=== PATIENT | male | born 1945 | race African-American/Black ===

== ENCOUNTER 2017-04-14 16:48 | Emergency (ER) | payer MEDICARE, MEDICAID ==
[~2017-04-14] VITALS: Ht 182.9 cm; Wt 96.0 kg
[2017-04-14] MEDS ORDERED: VISCOUS LIDOCAINE 2% 15 ML UDC PO STA (17:45)
[2017-04-14] MEDS ORDERED: MAGNESIUM/ALUMINUM HYDROXIDE/SIMETHICONE 30ML UDC PO STA (17:45)
[2017-04-14] MEDS ORDERED: FAMOTIDINE 20MG TABLET PO ONE (17:45)
[2017-04-14 20:15] VITALS: BP 132/75
== END 2017-04-14 20:30 | disposition home or self-care (01) ==
LOC: ER 16:59
DX: R07.89 Other chest pain (principal); R03.0 Elevated blood-pressure reading, without diagnosis of hypertension
CPT/HCPCS: 93005; 99283

== ENCOUNTER 2018-09-20 11:33 | Inpatient (IN) | payer MEDICARE, MEDICAID ==
[~2018-09-20] VITALS: Ht 185.4 cm; Wt 70.8 kg
[2018-09-20 12:57] LABS: BASOPHILS % 1.1 % (0.0-2.0); EOSINOPHILS % 1.4 % (0.0-5.0); HEMATOCRIT. 40.2 % (42.0-52.0); LYMPHOCYTES % 36.7 % (20.0-50.0); MEAN CORPUSCULAR HEMOGLOBIN 33.8 pg (28.0-32.0); MEAN CORPUSCULAR VOLUME 104.6 fL (80.0-94.0); MEAN PLATELET VOLUME 10.1 fl (7.4-10.4); MONOCYTES % 2.2 % (2.0-8.0); NEUTROPHILS % 58.6 % (40.0-76.0); PLATELET 142 x1000/uL (130-400); RED BLOOD CELL COUNT 3.85 mill/uL (4.7-6.1)
[2018-09-20 13:08] LABS: INR 1.2; PARTIAL THROMBOPLASTIN TIME 27.1 sec (23.4-31.0); PROTHROMBIN TIME 11.7 sec (9.1-11.1)
[2018-09-20 13:09] LABS: CHLORIDE 112 mEq/L (98-107)
[2018-09-20] MEDS ORDERED: ASPIRIN 325MG EC TABLET PO ONE (13:15)
[2018-09-20] MEDS ORDERED: POTASSIUM CHLORIDE 20MEQ TABLET SR PO ONE (13:30)
[2018-09-20] MEDS ORDERED: SODIUM CHLORIDE 0.9% 1000ML BAG (SEPSIS BOLUS) IV ONE (13:30)
[2018-09-20] MEDS ORDERED: LEVOFLOXACIN 750MG PREMIX 150 ML IV ONE (13:30)
[2018-09-20] MEDS ORDERED: ONDANSETRON HCL 4MG/2ML INJ IV PRN (14:30)
[2018-09-20] MEDS ORDERED: MORPHINE SULFATE 4 MG/ML CPJ (NOT FOR IM USE) IV PRN (14:30)
[2018-09-20] MEDS ORDERED: ACETAMINOPHEN 325MG TABLET PO PRN (14:30)
[2018-09-20] MEDS ORDERED: ENOXAPARIN 80MG/0.8ML SYR SUBCUT ONE (16:00)
[2018-09-20] MEDS ORDERED: IOHEXOL-350 100 ML BOTTLE ONE (17:08)
[2018-09-20 17:44] LABS: KETONES URINE NEGATIVE (NEGATIVE); LEUKOCYTE ESTERASE URINE NEGATIVE (NEGATIVE); NITRITE URINE NEGATIVE (NEGATIVE); OCCULT BLOOD URINE 3+ (NEGATIVE); PROTEIN URINE NEGATIVE (NEGATIVE); SPECIFIC GRAVITY URINE 1.022 (1.005-1.030)
[2018-09-20 17:45] LABS: CLARITY URINE HAZY (CLEAR); COLOR URINE AMBER (YELLOW)
[2018-09-20 17:55] LABS: *AMPHETAMINES SCREEN URINE NEGATIVE (NEGATIVE); *BARBITURATES SCREEN URINE NEGATIVE (NEGATIVE)
[2018-09-20 17:56] LABS: *BENZODIAZEPINES SCREEN URINE NEGATIVE (NEGATIVE); *COCAINE SCREEN URINE NEGATIVE (NEGATIVE); CANNABINOID URINE SCREEN NEGATIVE (NEGATIVE); METHADONE URINE SCREEN NEGATIVE (NEGATIVE); OPIATES URINE SCREEN NEGATIVE (NEGATIVE); PHENCYCLIDINE URINE SCREEN NEGATIVE (NEGATIVE)
[2018-09-20 20:58] LABS: AMMONIA 26 uMol/L (<32)
[2018-09-20 23:00] VITALS: BP 115/63
[2018-09-21] VITALS (11 sets, daily range): BP systolic 109–129; BP diastolic 60–80
[2018-09-21 06:29] LABS: BASOPHILS % 0.9 % (0.0-2.0); EOSINOPHILS % 2.8 % (0.0-5.0); HEMATOCRIT. 39.7 % (42.0-52.0); LYMPHOCYTES % 43.5 % (20.0-50.0); MEAN CORPUSCULAR HEMOGLOBIN 34.6 pg (28.0-32.0); MEAN CORPUSCULAR VOLUME 105.4 fL (80.0-94.0); MEAN PLATELET VOLUME 10.4 fl (7.4-10.4); MONOCYTES % 7.1 % (2.0-8.0); NEUTROPHILS % 45.7 % (40.0-76.0); PLATELET 128 x1000/uL (130-400); RED BLOOD CELL COUNT 3.77 mill/uL (4.7-6.1); RED CELL DISTRIBUTION WIDTH 14.2 % (11.6-14.6)
[2018-09-21 06:36] LABS: CHLORIDE 117 mEq/L (98-107)
[2018-09-21] MEDS ORDERED: PNEUMOCOCCAL 23-VAL P-SAC VAC 0.5 ML IM ONE (09:00)
[2018-09-21] MEDS ORDERED: FUROSEMIDE 40MG/4ML VIAL IV SCH (09:00)
[2018-09-21] MEDS ORDERED: INFLUENZA VIRUS VACCINE(AFLURIA) 0.5ML SYR IM ONE (09:00)
[2018-09-21] MEDS: ENOXAPARIN 80MG/0.8ML SYR SUBCUT SCH ×2 (09:00→21:37)
[2018-09-21 11:32] LABS: T4 FREE 1.47 ng/dL (0.76-1.46)
[2018-09-21 11:57] LABS: FOLIC ACID (FOLATE) SERUM 11.1 ng/mL (>5.38)
[2018-09-21] MEDS ORDERED: SODIUM BICARBONATE 4% (2.4MEQ) 5ML VIAL IV ONE (13:04)
[2018-09-21] MEDS ORDERED: LIDOCAINE HCL 1% 20ML VIAL (Pyxis) INJ ONE (13:04)
[2018-09-21] MEDS ORDERED: IOHEXOL-300 100 ML BOTTLE ONE (13:05)
[2018-09-21] MEDS ORDERED: LEVOFLOXACIN 500MG PREMIX 100 ML IV SCH (14:00)
[2018-09-21] MEDS: DEXTROSE 5% WATER 1,000 ML IV SCH (15:06)
[2018-09-21 18:19] LABS: CREATINE KINASE 59 IU/L (39-308); CREATINE KINASE MB FRACTION 1.3 ng/mL (0.5-3.6)
[2018-09-21] MEDS: ATORVASTATIN CALCIUM 10MG TABLET PO SCH (21:38)
[2018-09-22] VITALS (7 sets, daily range): BP systolic 101–118; BP diastolic 49–80
[2018-09-22] MEDS: IPRATROPIUM/ALBUTEROL 0.5-3(2.5)MG/3ML NEB INH SCH ×4 (01:19→20:20)
[2018-09-22 02:32] LABS: CREATINE KINASE 81 IU/L (39-308); CREATINE KINASE MB FRACTION 1.5 ng/mL (0.5-3.6)
[2018-09-22 07:23] LABS: BASOPHILS % 1.1 % (0.0-2.0); EOSINOPHILS % 2.6 % (0.0-5.0); HEMATOCRIT. 34.6 % (42.0-52.0); HEMOGLOBIN. 11.5 g/dL (14.0-18.0); LYMPHOCYTES % 44.4 % (20.0-50.0); MEAN CORPUSCULAR HEMOGLOBIN 35.2 pg (28.0-32.0); MEAN CORPUSCULAR VOLUME 105.7 fL (80.0-94.0); MEAN PLATELET VOLUME 10.5 fl (7.4-10.4); MONOCYTES % 7.9 % (2.0-8.0); PLATELET 126 x1000/uL (130-400); RED BLOOD CELL COUNT 3.28 mill/uL (4.7-6.1); RED CELL DISTRIBUTION WIDTH 13.7 % (11.6-14.6)
[2018-09-22 08:17] LABS: CHLORIDE 111 mEq/L (98-107)
[2018-09-22 08:31] LABS: CREATINE KINASE 82 IU/L (39-308); CREATINE KINASE MB FRACTION 1.7 ng/mL (0.5-3.6)
[2018-09-22] MEDS ORDERED: POTASSIUM CHLORIDE 20MEQ/PACKET PO NR (09:15)
[2018-09-22] MEDS: DEXTROSE 5% WATER 1,000 ML IV SCH (10:24)
[2018-09-22] MEDS ORDERED: LEVOFLOXACIN 500MG PREMIX 100 ML IV SCH (15:30)
[2018-09-22 16:04] LABS: TOTAL IRON BINDING CAPACITY 188 ug/dL (250-450)
[2018-09-22] MEDS: PANTOPRAZOLE SODIUM 40 MG/VIAL IV SCH (16:44)
[2018-09-22] MEDS: DOCUSATE SODIUM 100MG CAPSULE PO PRN (16:44)
[2018-09-22] MEDS: ATORVASTATIN CALCIUM 10MG TABLET PO SCH (21:37)
[2018-09-23] MEDS: DEXTROSE 5% WATER 1,000 ML IV SCH ×2 (01:59→20:57)
[2018-09-23] MEDS: IPRATROPIUM/ALBUTEROL 0.5-3(2.5)MG/3ML NEB INH SCH ×4 (02:03→20:14)
[2018-09-23 04:00] VITALS: BP 129/80
[2018-09-23 07:42] VITALS: BP 103/56
[2018-09-23 09:10] LABS: HEMOGLOBIN. 10.8 g/dL (14.0-18.0); MEAN CORPUSCULAR HEMOGLOBIN 33.9 pg (28.0-32.0); MEAN PLATELET VOLUME 9.7 fl (7.4-10.4); PLATELET 122 x1000/uL (130-400); RED BLOOD CELL COUNT 3.18 mill/uL (4.7-6.1); RED CELL DISTRIBUTION WIDTH 13.7 % (11.6-14.6)
[2018-09-23 09:29] LABS: CHLORIDE 106 mEq/L (98-107)
[2018-09-23 09:41] LABS: PHOSPHORUS 2.6 mg/dL (2.5-4.9)
[2018-09-23] MEDS: PANTOPRAZOLE SODIUM 40 MG/VIAL IV SCH ×2 (10:31→17:17)
[2018-09-23] MEDS: LEVOFLOXACIN 500MG TABLET PO SCH (10:33)
[2018-09-23 12:00] VITALS: BP 104/56
[2018-09-23 12:27] LABS: PLATELET ESTIMATE SLIGHTLY DECREASED
[2018-09-23 16:00] VITALS: BP 121/59
[2018-09-23 20:00] VITALS: BP 104/60
[2018-09-23] MEDS: ATORVASTATIN CALCIUM 10MG TABLET PO SCH (20:57)
[2018-09-24] VITALS: BP 109/55
[2018-09-24] MEDS: IPRATROPIUM/ALBUTEROL 0.5-3(2.5)MG/3ML NEB INH SCH ×4 (02:05→21:02)
[2018-09-24 04:00] VITALS: BP 116/65
[2018-09-24 08:28] VITALS: BP 126/60
[2018-09-24] MEDS: PANTOPRAZOLE SODIUM 40 MG/VIAL IV SCH ×2 (09:11→16:22)
[2018-09-24] MEDS: DOCUSATE SODIUM 100MG CAPSULE PO PRN (09:11)
[2018-09-24] MEDS: LEVOFLOXACIN 500MG TABLET PO SCH (09:11)
[2018-09-24 12:00] VITALS: BP 118/62
[2018-09-24 16:00] VITALS: BP 105/62
[2018-09-24 17:15] LABS: BASOPHILS % 1.1 % (0.0-2.0); EOSINOPHILS % 3.2 % (0.0-5.0); HEMATOCRIT. 35.3 % (42.0-52.0); HEMOGLOBIN. 11.4 g/dL (14.0-18.0); LYMPHOCYTES % 32.6 % (20.0-50.0); MEAN CORPUSCULAR HEMOGLOBIN 34.6 pg (28.0-32.0); MEAN CORPUSCULAR VOLUME 107.2 fL (80.0-94.0); MEAN PLATELET VOLUME 10.6 fl (7.4-10.4); MONOCYTES % 11.6 % (2.0-8.0); NEUTROPHILS % 51.5 % (40.0-76.0); PLATELET 89 x1000/uL (130-400); RED CELL DISTRIBUTION WIDTH 14.2 % (11.6-14.6)
[2018-09-24 17:23] LABS: CHLORIDE 106 mEq/L (98-107)
[2018-09-24 20:00] VITALS: BP 135/68
[2018-09-24] MEDS: ATORVASTATIN CALCIUM 10MG TABLET PO SCH (20:47)
[2018-09-25] VITALS: BP 111/96
[2018-09-25] MEDS: IPRATROPIUM/ALBUTEROL 0.5-3(2.5)MG/3ML NEB INH SCH ×2 (01:01→09:28)
[2018-09-25 04:00] VITALS: BP 119/60
[2018-09-25 07:13] LABS: BASOPHILS % 1.2 % (0.0-2.0); EOSINOPHILS % 2.5 % (0.0-5.0); HEMATOCRIT. 31.9 % (42.0-52.0); HEMOGLOBIN. 10.7 g/dL (14.0-18.0); LYMPHOCYTES % 47.4 % (20.0-50.0); MEAN CORPUSCULAR HEMOGLOBIN 35.2 pg (28.0-32.0); MEAN CORPUSCULAR VOLUME 104.7 fL (80.0-94.0); MEAN PLATELET VOLUME 10.1 fl (7.4-10.4); MONOCYTES % 9.7 % (2.0-8.0); NEUTROPHILS % 39.2 % (40.0-76.0); PLATELET 122 x1000/uL (130-400); RED BLOOD CELL COUNT 3.04 mill/uL (4.7-6.1); RED CELL DISTRIBUTION WIDTH 13.5 % (11.6-14.6)
[2018-09-25 07:39] LABS: CHLORIDE 108 mEq/L (98-107)
[2018-09-25 08:00] VITALS: BP 121/69
[2018-09-25] MEDS ORDERED: POTASSIUM CHLORIDE 20MEQ/PACKET PO SCH (08:15)
[2018-09-25] MEDS: PANTOPRAZOLE SODIUM 40 MG/VIAL IV SCH (10:28)
[2018-09-25] MEDS: LEVOFLOXACIN 500MG TABLET PO SCH (10:28)
[2018-09-25 11:22] VITALS: BP 121/69
[2018-09-25 12:00] VITALS: BP 120/67
== END 2018-09-25 14:05 | disposition home health service (06) | DRG 139 ==
LOC: ER 13:09 → 8WST 14:14 → EDBEDREQ 14:22 → ENRESERV 19:16
PROVIDERS: ADMIT Internal Medicine Nephrology; ATTEND Internal Medicine Nephrology
PROC: 06H03DZ Insertion of Intraluminal Device into Inferior Vena Cava, Percutaneous Approach (ICD-10-PCS; principal; 2018-09-21)
DX: J18.9 Pneumonia, unspecified organism (principal); I82.412 Acute embolism and thrombosis of left femoral vein; D69.6 Thrombocytopenia, unspecified; E86.0 Dehydration; D64.9 Anemia, unspecified; I10 Essential (primary) hypertension; B19.20 Unspecified viral hepatitis C without hepatic coma; N39.0 Urinary tract infection, site not specified; I25.10 Atherosclerotic heart disease of native coronary artery without angina pectoris; K80.20 Calculus of gallbladder without cholecystitis without obstruction; R47.81 Slurred speech; R47.1 Dysarthria and anarthria; R31.0 Gross hematuria; Z86.718 Personal history of other venous thrombosis and embolism; Z86.73 Personal history of transient ischemic attack (TIA), and cerebral infarction without residual deficits; Z87.891 Personal history of nicotine dependence
CPT/HCPCS: 36415; 37191; 70544; 70553; 71045; 71275; 74176; 80048; 80061; 80076; 80305; 82140; 82270; 82550; 82553; 82607; 82728; 82746; 82962; 83036; 83540; 83550; 83605; 83735; 83880; 84100; 84439; 84443; 84481; 84484; 85379; 90686; 90732; 92523; 92610; 93005; 93306; 93880; 93970; 94640; 96361; 96365; 96366; 97110; 97163; 97166; 97530; 99285; C1769; C1880; C9113; J1644; J1650; J1940; J1956; J3490; J7030; J7070; J7620; Q9967; A4315

== ENCOUNTER 2018-10-22 14:11 | Inpatient (IN) | payer MEDICARE, MEDICAID ==
[~2018-10-22] VITALS: Ht 185.4 cm; Wt 70.3 kg
[2018-10-22] MEDS ORDERED: BACITRACIN ZINC OINT UDPKT TOP ONE (16:45)
[2018-10-22] MEDS ORDERED: ACETAMINOPHEN 325MG TABLET PO ONE (16:45)
[2018-10-22 17:15] LABS: BG BASE EXCESS -0.6 mmol/L (-2.0-2.0); BG CARBOXYHEMOGLOBIN 1.3 % (0.5-1.5); BG DEOXYHEMOGLOBIN 5.6 % (0.0-5.0); BG FRACTION INSPIRED OXYGEN 32; BG HCO3 ACT 23.7 mmol/L (22.0-26.0); BG METHEMOGLOBIN 0.3 % (0.0-1.5); BG OXYGEN SATURATION 94.3 % (92.0-98.5); BG OXYHEMOGLOBIN 92.8 % (94.0-97.0); BG PH 7.413 (7.350-7.450); BG PO2 72.9 mmHg (75.0-100.0); BG SAMPLE SITE RIGHT BRACHIAL; BG TOTAL HEMOGLOBIN 14.3 g/dL (12.0-18.0); BG VENT MODE NASAL CANNULA
[2018-10-22 17:18] LABS: BASOPHILS % 1.3 % (0.0-2.0); EOSINOPHILS % 0.8 % (0.0-5.0); HEMATOCRIT. 35.6 % (42.0-52.0); HEMOGLOBIN. 11.4 g/dL (14.0-18.0); LYMPHOCYTES % 33.9 % (20.0-50.0); MEAN CORPUSCULAR HEMOGLOBIN 33.1 pg (28.0-32.0); MEAN CORPUSCULAR VOLUME 103.5 fL (80.0-94.0); MEAN PLATELET VOLUME 9.4 fl (7.4-10.4); MONOCYTES % 7.3 % (2.0-8.0); NEUTROPHILS % 56.7 % (40.0-76.0); PLATELET 120 x1000/uL (130-400); RED BLOOD CELL COUNT 3.43 mill/uL (4.7-6.1); RED CELL DISTRIBUTION WIDTH 14.1 % (11.6-14.6)
[2018-10-22 17:20] LABS: INR 1.2
[2018-10-22 17:22] LABS: CHLORIDE 113 mEq/L (98-107)
[2018-10-22 17:26] LABS: ETHANOL BLOOD < 10 mg/dL
[2018-10-22 17:30] LABS: CREATINE KINASE 124 IU/L (39-308)
[2018-10-22] MEDS ORDERED: PIPERACILLIN/TAZOBACTAM 3.375GM/50ML PREMIX IV ONE (18:30)
[2018-10-22] MEDS ORDERED: VANCOMYCIN 1 G PREMIX 200 ML IV SCH (18:30)
[2018-10-22] MEDS ORDERED: PIPERACILLIN/TAZ 3.375G PREMIX 50 ML IV NR (18:45)
[2018-10-22 18:52] LABS: CLARITY URINE CLEAR (CLEAR); COLOR URINE DARK YELLOW (YELLOW); KETONES URINE NEGATIVE (NEGATIVE); LEUKOCYTE ESTERASE URINE TRACE (NEGATIVE); NITRITE URINE NEGATIVE (NEGATIVE); OCCULT BLOOD URINE NEGATIVE (NEGATIVE); PH URINE 5.5 (4.5-8.0); PROTEIN URINE NEGATIVE (NEGATIVE)
[2018-10-22 19:04] LABS: *AMPHETAMINES SCREEN URINE NEGATIVE (NEGATIVE); *BARBITURATES SCREEN URINE NEGATIVE (NEGATIVE); *BENZODIAZEPINES SCREEN URINE NEGATIVE (NEGATIVE); *COCAINE SCREEN URINE NEGATIVE (NEGATIVE)
[2018-10-22 19:05] LABS: CANNABINOID URINE SCREEN NEGATIVE (NEGATIVE); METHADONE URINE SCREEN NEGATIVE (NEGATIVE); OPIATES URINE SCREEN PRESUMTIVE POSITIVE (NEGATIVE); PHENCYCLIDINE URINE SCREEN NEGATIVE (NEGATIVE)
[2018-10-22] MEDS ORDERED: SODIUM CHLORIDE 0.9% 1000ML BAG (SEPSIS BOLUS) IV ONE (22:00)
[2018-10-22] MEDS ORDERED: SODIUM CHLORIDE 0.9% 1,000 ML IV ONE (23:30)
[2018-10-23] MEDS ORDERED: MAGNESIUM/ALUMINUM HYDROXIDE/SIMETHICONE 30ML UDC PO PRN
[2018-10-23] MEDS ORDERED: DEXTROSE 50% WATER 50ML SYRINGE IV PRN
[2018-10-23] MEDS ORDERED: ACETAMINOPHEN 325MG TABLET PO PRN
[2018-10-23] MEDS ORDERED: NA PHOS,M-B/NA PHOS,DI-BA ENEMA 118ML PR PRN
[2018-10-23] MEDS ORDERED: CLONIDINE 0.1MG TABLET PO PRN
[2018-10-23] MEDS ORDERED: DIPHENHYDRAMINE 50MG/ML VIAL IV PRN
[2018-10-23] MEDS ORDERED: ACETAMINOPHEN 650MG SUPP PR PRN
[2018-10-23] MEDS ORDERED: IPRATROPIUM/ALBUTEROL 0.5-3(2.5)MG/3ML NEB INH PRN
[2018-10-23] MEDS ORDERED: ACETAMINOPHEN 650MG/20.3ML UDC GT PRN
[2018-10-23] MEDS ORDERED: HYDROCODONE/ACETAMINOPHEN 5/325MG TABLET PO PRN
[2018-10-23] MEDS ORDERED: ONDANSETRON HCL 4MG/2ML INJ IV PRN
[2018-10-23 05:09] VITALS: BP 91/58
[2018-10-23 05:11] VITALS: BP 91/58
[2018-10-23 07:39] LABS: CLARITY URINE CLEAR (CLEAR); COLOR URINE YELLOW (YELLOW); KETONES URINE NEGATIVE (NEGATIVE); LEUKOCYTE ESTERASE URINE 2+ (NEGATIVE); NITRITE URINE NEGATIVE (NEGATIVE); OCCULT BLOOD URINE 1+ (NEGATIVE); PH URINE 6.5 (4.5-8.0); PROTEIN URINE NEGATIVE (NEGATIVE); SPECIFIC GRAVITY URINE 1.016 (1.005-1.030)
[2018-10-23] MEDS: BLOOD SUGAR DIAGNOSTIC STRIP TEST SCH ×4 (07:40→20:33)
[2018-10-23 08:00] VITALS: BP 98/56
[2018-10-23] MEDS: INSULIN LISPRO 100 UNITS/ML SUBCUT SCH ×4 (08:10→20:33)
[2018-10-23 08:21] LABS: *BENZODIAZEPINES SCREEN URINE NEGATIVE (NEGATIVE); *COCAINE SCREEN URINE NEGATIVE (NEGATIVE)
[2018-10-23 08:22] LABS: *AMPHETAMINES SCREEN URINE NEGATIVE (NEGATIVE); CANNABINOID URINE SCREEN NEGATIVE (NEGATIVE); METHADONE URINE SCREEN NEGATIVE (NEGATIVE); OPIATES URINE SCREEN PRESUMTIVE POSITIVE (NEGATIVE); PHENCYCLIDINE URINE SCREEN NEGATIVE (NEGATIVE)
[2018-10-23 08:23] LABS: *BARBITURATES SCREEN URINE NEGATIVE (NEGATIVE)
[2018-10-23] MEDS: DEXTROSE 5% WATER 1,000 ML IV SCH (08:42)
[2018-10-23] MEDS: PIPERACILLIN/TAZ 3.375G PREMIX 50 ML IV SCH ×3 (08:43→23:49)
[2018-10-23 09:47] LABS: BASOPHILS % 0.2 % (0.0-2.0); EOSINOPHILS % 0.2 % (0.0-5.0); HEMATOCRIT. 34.7 % (42.0-52.0); LYMPHOCYTES % 10.5 % (20.0-50.0); MEAN CORPUSCULAR HEMOGLOBIN 32.7 pg (28.0-32.0); MEAN CORPUSCULAR VOLUME 103.7 fL (80.0-94.0); MEAN PLATELET VOLUME 9.5 fl (7.4-10.4); NEUTROPHILS % 87.1 % (40.0-76.0); PLATELET 84 x1000/uL (130-400); RED BLOOD CELL COUNT 3.35 mill/uL (4.7-6.1); RED CELL DISTRIBUTION WIDTH 13.9 % (11.6-14.6)
[2018-10-23] MEDS: METRONIDAZOLE 500 MG PREMIX 100 ML IV SCH ×2 (09:47→18:40)
[2018-10-23] MEDS ORDERED: ENOXAPARIN 40MG/0.4ML SYR SUBCUT SCH (10:00)
[2018-10-23 10:22] LABS: CHLORIDE 118 mEq/L (98-107)
[2018-10-23 10:35] LABS: LDL CHOLESTEROL 55 mg/dL (5-100)
[2018-10-23 10:36] LABS: CREATINE KINASE 334 IU/L (39-308); HDL CHOLESTEROL 32 mg/dL (40-59)
[2018-10-23 10:39] LABS: CREATINE KINASE MB FRACTION 8.3 ng/mL (0.5-3.6)
[2018-10-23 12:00] VITALS: BP 134/61
[2018-10-23] MEDS ORDERED: VANCOMYCIN 1 G PREMIX 200 ML IV SCH (13:00)
[2018-10-23 16:00] VITALS: BP 103/60
[2018-10-23 16:55] LABS: CREATINE KINASE 287 IU/L (39-308)
[2018-10-23 16:57] LABS: CREATINE KINASE MB FRACTION 6.7 ng/mL (0.5-3.6)
[2018-10-23] MEDS: VANCOMYCIN 1 G PREMIX 200 ML IV SCH (17:35)
[2018-10-23] MEDS: SODIUM CHLORIDE 0.9% INJ 3ML FLUSH IVF SCH ×2 (17:38→20:33)
[2018-10-23] MEDS ORDERED: LIDOCAINE HCL/EPINEPHRINE 1%-EPI 1:100,000 50 ML VIAL INFIL NR (18:30)
[2018-10-23] MEDS ORDERED: LIDOCAINE HCL/EPINEPHRINE 1%-EPI 1:100,000 20 ML VIAL INFIL NR (18:45)
[2018-10-23 20:00] VITALS: BP 98/56
[2018-10-24] VITALS (7 sets, daily range): BP systolic 96–118; BP diastolic 48–66
[2018-10-24] MEDS: METRONIDAZOLE 500 MG PREMIX 100 ML IV SCH ×3 (01:54→22:47)
[2018-10-24] MEDS: DEXTROSE 5% WATER 1,000 ML IV SCH (01:55)
[2018-10-24] MEDS: VANCOMYCIN 1 G PREMIX 200 ML IV SCH (04:43)
[2018-10-24] MEDS: SODIUM CHLORIDE 0.9% INJ 3ML FLUSH IVF SCH ×3 (04:43→14:00)
[2018-10-24 05:49] LABS: HEMATOCRIT. 31.5 % (42.0-52.0); HEMOGLOBIN. 10.3 g/dL (14.0-18.0); MEAN CORPUSCULAR HEMOGLOBIN 33.5 pg (28.0-32.0); MEAN CORPUSCULAR VOLUME 102.2 fL (80.0-94.0); MEAN PLATELET VOLUME 9.9 fl (7.4-10.4); PLATELET 82 x1000/uL (130-400); RED BLOOD CELL COUNT 3.08 mill/uL (4.7-6.1); RED CELL DISTRIBUTION WIDTH 13.5 % (11.6-14.6)
[2018-10-24] MEDS: BLOOD SUGAR DIAGNOSTIC STRIP TEST SCH ×4 (06:30→21:12)
[2018-10-24 06:32] LABS: CHLORIDE 114 mEq/L (98-107)
[2018-10-24] MEDS: INSULIN LISPRO 100 UNITS/ML SUBCUT SCH ×4 (08:00→21:00)
[2018-10-24] MEDS: PIPERACILLIN/TAZ 3.375G PREMIX 50 ML IV SCH ×2 (08:56→18:28)
[2018-10-24 13:03] LABS: NUCLEATED RED BLOOD CELLS 1 /100 WBC
[2018-10-24 13:04] LABS: PLATELET ESTIMATE DECREASED
[2018-10-24] MEDS: VANCOMYCIN 750 MG PREMIX 150 ML IV SCH (21:11)
[2018-10-24] MEDS ORDERED: POTASSIUM CHLORIDE 20MEQ TABLET SR PO PRN (21:45)
[2018-10-25] VITALS: BP 98/68
[2018-10-25] MEDS: PIPERACILLIN/TAZ 3.375G PREMIX 50 ML IV SCH ×2 (01:59→10:00)
[2018-10-25 04:00] VITALS: BP 125/65
[2018-10-25] MEDS: METRONIDAZOLE 500 MG PREMIX 100 ML IV SCH (04:08)
[2018-10-25] MEDS: DEXTROSE 5% WATER 1,000 ML IV SCH (05:14)
[2018-10-25] MEDS: BLOOD SUGAR DIAGNOSTIC STRIP TEST SCH ×2 (06:26→21:00)
[2018-10-25] MEDS: VANCOMYCIN 750 MG PREMIX 150 ML IV SCH (09:04)
[2018-10-25] MEDS ORDERED: LIDOCAINE HCL/EPINEPHRINE 1%-EPI 1:100,000 20 ML VIAL INFIL NR (11:30)
[2018-10-25] MEDS ORDERED: LIDOCAINE HCL 1% 20ML VIAL (Pyxis) INJ ONE (14:45)
[2018-10-25 20:00] VITALS: BP 115/63
[2018-10-25] MEDS: INSULIN LISPRO 100 UNITS/ML SUBCUT SCH (21:00)
[2018-10-25] MEDS: SODIUM CHLORIDE 0.9% INJ 3ML FLUSH IVF SCH (21:00)
[2018-10-26] VITALS (7 sets, daily range): BP systolic 93–132; BP diastolic 49–84
[2018-10-26] MEDS: CEPHALEXIN 250MG CAPSULE PO SCH ×5 (02:29→23:16)
[2018-10-26 07:35] LABS: BASOPHILS % 1.1 % (0.0-2.0); EOSINOPHILS % 2.9 % (0.0-5.0); HEMATOCRIT. 35.6 % (42.0-52.0); HEMOGLOBIN. 11.6 g/dL (14.0-18.0); LYMPHOCYTES % 55.3 % (20.0-50.0); MEAN CORPUSCULAR VOLUME 101.6 fL (80.0-94.0); MEAN PLATELET VOLUME 10.3 fl (7.4-10.4); MONOCYTES % 9.7 % (2.0-8.0); PLATELET 99 x1000/uL (130-400); RED CELL DISTRIBUTION WIDTH 13.4 % (11.6-14.6)
[2018-10-26] MEDS: VANCOMYCIN 750 MG PREMIX 150 ML IV SCH ×2 (08:00→12:00)
[2018-10-26] MEDS: DEXTROSE 5% WATER 1,000 ML IV SCH ×2 (08:00→23:16)
[2018-10-26 08:11] LABS: CHLORIDE 109 mEq/L (98-107)
[2018-10-26] MEDS: BLOOD SUGAR DIAGNOSTIC STRIP TEST SCH ×4 (12:00→21:14)
[2018-10-26] MEDS: INSULIN LISPRO 100 UNITS/ML SUBCUT SCH ×4 (12:00→21:00)
[2018-10-26] MEDS: PIPERACILLIN/TAZ 3.375G PREMIX 50 ML IV SCH (20:35)
[2018-10-27] VITALS: BP 93/48
[2018-10-27 04:00] VITALS: BP 100/63
[2018-10-27] MEDS: PIPERACILLIN/TAZ 3.375G PREMIX 50 ML IV SCH ×4 (05:31→22:29)
[2018-10-27] MEDS: CEPHALEXIN 250MG CAPSULE PO SCH ×3 (06:00→18:11)
[2018-10-27] MEDS: VANCOMYCIN 1250MG in DEXTROSE 5% WATER 250ML IV SCH (06:31)
[2018-10-27] MEDS: BLOOD SUGAR DIAGNOSTIC STRIP TEST SCH ×4 (06:41→21:00)
[2018-10-27] MEDS: INSULIN LISPRO 100 UNITS/ML SUBCUT SCH ×4 (08:10→21:00)
[2018-10-27] MEDS ORDERED: LIDOCAINE HCL 1% 20ML VIAL (Pyxis) INJ ONE (10:45)
[2018-10-27] MEDS: DEXTROSE 5% WATER 1,000 ML IV SCH ×2 (11:17→22:29)
[2018-10-27 12:00] VITALS: BP 169/74
[2018-10-27 16:00] VITALS: BP 148/81
[2018-10-27 20:00] VITALS: BP 126/77
[2018-10-28] VITALS: BP 125/63
[2018-10-28] MEDS: VANCOMYCIN 1250MG in DEXTROSE 5% WATER 250ML IV SCH (02:07)
[2018-10-28] MEDS: CEPHALEXIN 250MG CAPSULE PO SCH ×3 (02:08→12:41)
[2018-10-28 04:00] VITALS: BP 113/71
[2018-10-28] MEDS: PIPERACILLIN/TAZ 3.375G PREMIX 50 ML IV SCH ×2 (07:00→14:00)
[2018-10-28] MEDS: DEXTROSE 5% WATER 1,000 ML IV SCH (07:01)
[2018-10-28] MEDS: INSULIN LISPRO 100 UNITS/ML SUBCUT SCH ×3 (07:01→16:39)
[2018-10-28] MEDS: BLOOD SUGAR DIAGNOSTIC STRIP TEST SCH ×3 (07:01→16:39)
[2018-10-28 08:00] VITALS: BP 135/77
[2018-10-28 10:28] VITALS: BP 110/75
[2018-10-28 12:00] VITALS: BP 96/43
[2018-10-28 16:00] VITALS: BP_SYST 104; BP_SYST 108; BP_DIAS 43; BP_DIAS 62
== END 2018-10-28 17:41 | DRG 710 ==
LOC: ER 14:55 → 7WST 19:32 → ENRESERV 19:48 → CANRESERV 19:48 → EDBEDREQSVC 10-23 00:18 → ENRESERV 10-23 03:01
PROVIDERS: ADMIT Family Medicine; ATTEND Family Medicine
PROC: 0JBP0ZZ Excision of Left Lower Leg Subcutaneous Tissue and Fascia, Open Approach (ICD-10-PCS; principal; 2018-10-25)
PROC: 0KBP0ZZ Excision of Left Hip Muscle, Open Approach (ICD-10-PCS; 2018-10-25)
PROC: 0JBL0ZZ Excision of Right Upper Leg Subcutaneous Tissue and Fascia, Open Approach (ICD-10-PCS; 2018-10-25)
PROC: 0KBT0ZZ Excision of Left Lower Leg Muscle, Open Approach (ICD-10-PCS; 2018-10-25)
PROC: 02HV33Z Insertion of Infusion Device into Superior Vena Cava, Percutaneous Approach (ICD-10-PCS; 2018-10-27)
PROC: B548ZZA Ultrasonography of Superior Vena Cava, Guidance (ICD-10-PCS; 2018-10-27)
DX: A41.9 Sepsis, unspecified organism (principal); N17.0 Acute kidney failure with tubular necrosis; E43 Unspecified severe protein-calorie malnutrition; L89.213 Pressure ulcer of right hip, stage 3; E87.0 Hyperosmolality and hypernatremia; D69.6 Thrombocytopenia, unspecified; L89.890 Pressure ulcer of other site, unstageable; L89.224 Pressure ulcer of left hip, stage 4; L89.893 Pressure ulcer of other site, stage 3; D63.8 Anemia in other chronic diseases classified elsewhere; E86.0 Dehydration; E11.9 Type 2 diabetes mellitus without complications; K80.20 Calculus of gallbladder without cholecystitis without obstruction; I10 Essential (primary) hypertension; I25.10 Atherosclerotic heart disease of native coronary artery without angina pectoris; E87.6 Hypokalemia; Z86.718 Personal history of other venous thrombosis and embolism; Z74.01 Bed confinement status; Z86.73 Personal history of transient ischemic attack (TIA), and cerebral infarction without residual deficits; Z68.20 Body mass index [BMI] 20.0-20.9, adult
CPT/HCPCS: 36415; 36569; 36600; 71045; 76937; 80048; 80061; 80202; 80305; 80307; 80329; 82140; 82375; 82550; 82553; 82805; 82962; 83605; 84134; 84484; 92610; 93005; 96361; 96365; 97110; 97163; 97530; 99291; A6261; C1725; C1769; C1893; G0482; J1650; J2543; J3370; J3490; J7030; J7040; J7060; J7070; A4315

== ENCOUNTER 2018-12-07 15:58 | Inpatient (IN) | payer MEDICARE, MEDICAID ==
[~2018-12-07] VITALS: Ht 167.6 cm; Wt 74.8 kg
[2018-12-07] MEDS ORDERED: ALBUTEROL (0.083%) 2.5MG/3ML NEB HHN STA (16:06)
[2018-12-07] MEDS ORDERED: IPRATROPIUM BROMIDE (0.02%) 0.5MG/2.5ML NEB HHN STA (16:06)
[2018-12-07] MEDS ORDERED: MAGNESIUM 2 G PREMIX 50 ML IV STA (16:06)
[2018-12-07] MEDS ORDERED: METHYLPREDNISOLONE SOD SUCC 125 MG/2 ML VIAL IV STA (16:06)
[2018-12-07 16:57] LABS: BASOPHILS % 0.4 % (0.0-2.0); EOSINOPHILS % 1.6 % (0.0-5.0); HEMATOCRIT. 35.2 % (42.0-52.0); LYMPHOCYTES % 45.6 % (20.0-50.0); MEAN CORPUSCULAR HEMOGLOBIN 31.9 pg (28.0-32.0); MEAN CORPUSCULAR VOLUME 102.1 fL (80.0-94.0); MONOCYTES % 8.5 % (2.0-8.0); NEUTROPHILS % 43.9 % (40.0-76.0); PLATELET 203 x1000/uL (130-400); RED BLOOD CELL COUNT 3.45 mill/uL (4.7-6.1); RED CELL DISTRIBUTION WIDTH 15.6 % (11.6-14.6)
[2018-12-07 17:01] LABS: BG BASE EXCESS 0.1 mmol/L (-2.0-2.0); BG BILEVEL POS AIRWAY PRESSURE 15/5; BG CARBOXYHEMOGLOBIN 1.9 % (0.5-1.5); BG DEOXYHEMOGLOBIN 0.3 % (0.0-5.0); BG FRACTION INSPIRED OXYGEN 50; BG HCO3 ACT 24.6 mmol/L (22.0-26.0); BG METHEMOGLOBIN 0.3 % (0.0-1.5); BG OXYGEN SATURATION 99.7 % (92.0-98.5); BG OXYHEMOGLOBIN 97.5 % (94.0-97.0); BG PCO2 39.1 mmHg (35.0-45.0); BG PH 7.416 (7.350-7.450); BG PO2 295.5 mmHg (75.0-100.0); BG SAMPLE SITE RIGHT RADIAL; BG TOTAL HEMOGLOBIN 12.1 g/dL (12.0-18.0); BG VENT MODE MASK - BIPAP; BG VENT RATE 15 set
[2018-12-07 17:05] LABS: CHLORIDE 113 mEq/L (98-107)
[2018-12-07 17:06] LABS: INR 1.3; PARTIAL THROMBOPLASTIN TIME 32.7 sec (23.4-31.0); PROTHROMBIN TIME 13.4 sec (9.1-11.1)
[2018-12-07] MEDS ORDERED: LEVOFLOXACIN 500MG PREMIX 100 ML IV ONE (17:15)
[2018-12-07 18:17] LABS: CLARITY URINE TURBID (CLEAR); COLOR URINE DARK YELLOW (YELLOW); KETONES URINE NEGATIVE (NEGATIVE); LEUKOCYTE ESTERASE URINE 3+ (NEGATIVE); NITRITE URINE POSITIVE (NEGATIVE); OCCULT BLOOD URINE 3+ (NEGATIVE); PROTEIN URINE 1+ (NEGATIVE); SPECIFIC GRAVITY URINE 1.016 (1.005-1.030)
[2018-12-07 20:00] VITALS: BP_SYST 115; BP_SYST 120; BP_DIAS 69; BP_DIAS 76
[2018-12-07] MEDS ORDERED: IPRATROPIUM/ALBUTEROL 0.5-3(2.5)MG/3ML NEB INH PRN (20:30)
[2018-12-07] MEDS ORDERED: ACETAMINOPHEN 650MG SUPP PR PRN (20:30)
[2018-12-07] MEDS ORDERED: ONDANSETRON HCL 4MG/2ML INJ IV PRN (20:30)
[2018-12-07] MEDS ORDERED: DIPHENHYDRAMINE 50MG/ML VIAL IV PRN (20:30)
[2018-12-07] MEDS ORDERED: IPRATROPIUM/ALBUTEROL 0.5-3(2.5)MG/3ML NEB HHN PRN (21:00)
[2018-12-07 22:00] VITALS: BP 102/65
[2018-12-07] MEDS: ENOXAPARIN 40MG/0.4ML SYR SUBCUT SCH (22:18)
[2018-12-07] MEDS: DEXT 5%/0.45% NACL 1000ML 1,000 ML IV SCH (22:19)
[2018-12-08] VITALS (14 sets, daily range): BP systolic 81–126; BP diastolic 44–102
[2018-12-08 00:47] LABS: CREATINE KINASE 115 IU/L (39-308)
[2018-12-08 00:48] LABS: CREATINE KINASE MB FRACTION 3.5 ng/mL (0.5-3.6)
[2018-12-08] MEDS: IPRATROPIUM/ALBUTEROL 0.5-3(2.5)MG/3ML NEB HHN SCH ×6 (01:43→20:48)
[2018-12-08 06:03] LABS: HEMOGLOBIN. 10.5 g/dL (14.0-18.0); MEAN CORPUSCULAR HEMOGLOBIN 32.4 pg (28.0-32.0); MEAN CORPUSCULAR VOLUME 101.5 fL (80.0-94.0); PLATELET 121 x1000/uL (130-400); RED BLOOD CELL COUNT 3.25 mill/uL (4.7-6.1); RED CELL DISTRIBUTION WIDTH 15.2 % (11.6-14.6)
[2018-12-08 06:27] LABS: CHLORIDE 115 mEq/L (98-107)
[2018-12-08 06:33] LABS: LDL CHOLESTEROL 56 mg/dL (5-100)
[2018-12-08 06:35] LABS: CREATINE KINASE 152 IU/L (39-308); HDL CHOLESTEROL 16 mg/dL (40-59)
[2018-12-08 06:37] LABS: CREATINE KINASE MB FRACTION 4.7 ng/mL (0.5-3.6)
[2018-12-08] MEDS: BUDESONIDE 0.5MG/2ML NEB HHN SCH ×2 (08:28→20:47)
[2018-12-08] MEDS ORDERED: HETASTARCH/NORMAL SALINE 500 ML PLAST..BAG IV SCH (09:00)
[2018-12-08 09:40] LABS: PLATELET ESTIMATE SLIGHTLY DECREASED
[2018-12-08 10:49] LABS: BG BASE EXCESS 1.2 mmol/L (-2.0-2.0); BG CARBOXYHEMOGLOBIN 0.3 % (0.5-1.5); BG DEOXYHEMOGLOBIN 7.3 % (0.0-5.0); BG FRACTION INSPIRED OXYGEN 21; BG METHEMOGLOBIN 0.3 % (0.0-1.5); BG OXYGEN SATURATION 92.7 % (92.0-98.5); BG OXYHEMOGLOBIN 92.1 % (94.0-97.0); BG PCO2 36.5 mmHg (35.0-45.0); BG PH 7.454 (7.350-7.450); BG PO2 64.9 mmHg (75.0-100.0); BG SAMPLE SITE RIGHT RADIAL; BG VENT MODE ROOM AIR
[2018-12-08] MEDS: MIDODRINE HCL 5MG TABLET PO SCH ×3 (10:49→17:38)
[2018-12-08] MEDS: DEXT 5%/0.45% NACL 1000ML 1,000 ML IV SCH ×2 (10:51→23:29)
[2018-12-08 12:52] LABS: T4 FREE 1.7 ng/dL (0.76-1.46)
[2018-12-08 13:18] LABS: VITAMIN B12 SERUM >2000 pg/mL pg/mL (211-911)
[2018-12-08] MEDS ORDERED: LEVOFLOXACIN 500MG PREMIX 100 ML IV SCH (14:00)
[2018-12-08] MEDS: AMPICILLIN SOD/SULBACTAM NA 1.5 G in SODIUM CHLORIDE 0.9% 50 ML IV SCH ×2 (17:38→23:28)
[2018-12-08] MEDS: ENOXAPARIN 40MG/0.4ML SYR SUBCUT SCH (20:56)
[2018-12-09] VITALS (13 sets, daily range): BP systolic 81–113; BP diastolic 46–69
[2018-12-09] MEDS: IPRATROPIUM/ALBUTEROL 0.5-3(2.5)MG/3ML NEB HHN SCH ×6 (00:40→19:55)
[2018-12-09 00:45] LABS: T4 FREE 1.6 ng/dL (0.76-1.46)
[2018-12-09 00:46] LABS: CREATINE KINASE MB FRACTION 4.1 ng/mL (0.5-3.6)
[2018-12-09] MEDS: AMPICILLIN SOD/SULBACTAM NA 1.5 G in SODIUM CHLORIDE 0.9% 50 ML IV SCH ×3 (05:39→17:28)
[2018-12-09] MEDS: BUDESONIDE 0.5MG/2ML NEB HHN SCH ×2 (08:45→19:55)
[2018-12-09] MEDS: MIDODRINE HCL 5MG TABLET PO SCH ×3 (08:59→17:27)
[2018-12-09 09:01] LABS: BASOPHILS % 0.1 % (0.0-2.0); LYMPHOCYTES % 8.2 % (20.0-50.0); MEAN CORPUSCULAR HEMOGLOBIN 32.2 pg (28.0-32.0); MEAN CORPUSCULAR VOLUME 101.1 fL (80.0-94.0); MEAN PLATELET VOLUME 9.5 fl (7.4-10.4); MONOCYTES % 2.8 % (2.0-8.0); NEUTROPHILS % 88.9 % (40.0-76.0); PLATELET 81 x1000/uL (130-400); RED BLOOD CELL COUNT 2.74 mill/uL (4.7-6.1); RED CELL DISTRIBUTION WIDTH 15.2 % (11.6-14.6)
[2018-12-09 09:02] LABS: HEMATOCRIT. 27.7 % (42.0-52.0); HEMOGLOBIN. 8.8 g/dL (14.0-18.0)
[2018-12-09 09:07] LABS: CHLORIDE 116 mEq/L (98-107)
[2018-12-09 09:20] LABS: CREATINE KINASE 146 IU/L (39-308)
[2018-12-09 09:22] LABS: CREATINE KINASE MB FRACTION 3.1 ng/mL (0.5-3.6)
[2018-12-09] MEDS ORDERED: POTASSIUM CHLORIDE 20MEQ/PACKET PO SCH (09:30)
[2018-12-09 16:11] LABS: CREATINE KINASE MB FRACTION 3.1 ng/mL (0.5-3.6)
[2018-12-09] MEDS: ENOXAPARIN 40MG/0.4ML SYR SUBCUT SCH (20:44)
[2018-12-10] VITALS (12 sets, daily range): BP systolic 93–121; BP diastolic 57–79
[2018-12-10] MEDS: IPRATROPIUM/ALBUTEROL 0.5-3(2.5)MG/3ML NEB HHN SCH ×6 (00:02→20:34)
[2018-12-10] MEDS: AMPICILLIN SOD/SULBACTAM NA 1.5 G in SODIUM CHLORIDE 0.9% 50 ML IV SCH ×3 (00:17→12:31)
[2018-12-10 07:12] LABS: BASOPHILS % 0.4 % (0.0-2.0); EOSINOPHILS % 0.3 % (0.0-5.0); LYMPHOCYTES % 24.1 % (20.0-50.0); MEAN CORPUSCULAR HEMOGLOBIN 32.1 pg (28.0-32.0); MONOCYTES % 4.8 % (2.0-8.0); NEUTROPHILS % 70.4 % (40.0-76.0); PLATELET 88 x1000/uL (130-400); RED BLOOD CELL COUNT 3.25 mill/uL (4.7-6.1); RED CELL DISTRIBUTION WIDTH 15.2 % (11.6-14.6)
[2018-12-10 07:14] LABS: HEMATOCRIT. 32.8 % (42.0-52.0); HEMOGLOBIN. 10.4 g/dL (14.0-18.0)
[2018-12-10 07:22] LABS: CHLORIDE 116 mEq/L (98-107)
[2018-12-10] MEDS: BUDESONIDE 0.5MG/2ML NEB HHN SCH ×2 (08:07→20:34)
[2018-12-10] MEDS: MIDODRINE HCL 5MG TABLET PO SCH ×3 (08:31→17:54)
[2018-12-10] MEDS ORDERED: LACTULOSE 20G/30ML UDC PO NR (09:30)
[2018-12-10] MEDS: ZINC SULFATE 220 MG ( 50 ) CAPSULE PO SCH (09:43)
[2018-12-10] MEDS: ASCORBIC ACID 500 MG TABLET PO SCH (09:43)
[2018-12-10 10:24] LABS: TOTAL IRON BINDING CAPACITY 180 ug/dL (250-450)
[2018-12-10 11:38] LABS: INR 1.4; PARTIAL THROMBOPLASTIN TIME 35.7 sec (23.4-31.0)
[2018-12-10] MEDS ORDERED: LIDOCAINE HCL 1% 20ML VIAL (Pyxis) INJ ONE (12:56)
[2018-12-10] MEDS ORDERED: LIDOCAINE HCL/EPINEPHRINE 1%-EPI 1:100,000 20 ML VIAL INFIL NR (13:00)
[2018-12-10] MEDS ORDERED: SODIUM HYPOCHLORITE 0.125% 473ML SOLUTION TOP SCH (13:00)
[2018-12-10] MEDS: SULFAMETHOXAZOLE/TRIMETHOPRIM 800/160MG TABLET PO SCH (20:44)
[2018-12-10] MEDS: ENOXAPARIN 40MG/0.4ML SYR SUBCUT SCH (20:44)
[2018-12-11] VITALS (12 sets, daily range): BP systolic 95–112; BP diastolic 52–65
[2018-12-11] MEDS: IPRATROPIUM/ALBUTEROL 0.5-3(2.5)MG/3ML NEB HHN SCH ×6 (00:36→20:10)
[2018-12-11 07:59] LABS: BASOPHILS % 0.2 % (0.0-2.0); EOSINOPHILS % 0.3 % (0.0-5.0); HEMATOCRIT. 31.3 % (42.0-52.0); LYMPHOCYTES % 23.2 % (20.0-50.0); MEAN CORPUSCULAR HEMOGLOBIN 32.6 pg (28.0-32.0); MEAN CORPUSCULAR VOLUME 102.1 fL (80.0-94.0); MEAN PLATELET VOLUME 10.1 fl (7.4-10.4); MONOCYTES % 4.6 % (2.0-8.0); NEUTROPHILS % 71.7 % (40.0-76.0); PLATELET 80 x1000/uL (130-400); RED BLOOD CELL COUNT 3.07 mill/uL (4.7-6.1); RED CELL DISTRIBUTION WIDTH 15.5 % (11.6-14.6)
[2018-12-11 08:14] LABS: CHLORIDE 117 mEq/L (98-107)
[2018-12-11] MEDS: MIDODRINE HCL 5MG TABLET PO SCH ×3 (08:45→17:26)
[2018-12-11] MEDS: ASCORBIC ACID 500 MG TABLET PO SCH (08:45)
[2018-12-11] MEDS: SULFAMETHOXAZOLE/TRIMETHOPRIM 800/160MG TABLET PO SCH ×2 (08:45→20:19)
[2018-12-11] MEDS: ZINC SULFATE 220 MG ( 50 ) CAPSULE PO SCH (08:45)
[2018-12-11] MEDS: PANTOPRAZOLE 40MG DR TABLET PO SCH (08:45)
[2018-12-11] MEDS ORDERED: BISACODYL 10MG SUPP PR PRN (12:15)
[2018-12-11] MEDS ORDERED: BISACODYL 5MG TABLET PO PRN (12:15)
[2018-12-11] MEDS ORDERED: BISACODYL 10MG SUPP PR NR (12:15)
[2018-12-11] MEDS ORDERED: POTASSIUM PHOS,M-BASIC-D-BASIC 15 MMOL in DEXT 5% WATER 245 ML IV NR (15:30)
[2018-12-12] VITALS (12 sets, daily range): BP systolic 93–120; BP diastolic 35–73
[2018-12-12] MEDS: IPRATROPIUM/ALBUTEROL 0.5-3(2.5)MG/3ML NEB HHN SCH ×6 (00:09→20:15)
[2018-12-12] MEDS: PANTOPRAZOLE 40MG DR TABLET PO SCH (05:52)
[2018-12-12 08:02] LABS: BASOPHILS % 0.5 % (0.0-2.0); EOSINOPHILS % 0.3 % (0.0-5.0); HEMOGLOBIN. 9.5 g/dL (14.0-18.0); LYMPHOCYTES % 18.7 % (20.0-50.0); MEAN CORPUSCULAR HEMOGLOBIN 31.7 pg (28.0-32.0); MEAN CORPUSCULAR VOLUME 99.9 fL (80.0-94.0); MEAN PLATELET VOLUME 9.9 fl (7.4-10.4); MONOCYTES % 4.8 % (2.0-8.0); NEUTROPHILS % 75.7 % (40.0-76.0); PLATELET 75 x1000/uL (130-400); RED CELL DISTRIBUTION WIDTH 15.7 % (11.6-14.6)
[2018-12-12 08:23] LABS: CHLORIDE 118 mEq/L (98-107)
[2018-12-12] MEDS: DOCUSATE SODIUM SUGAR FREE 100MG/10ML UDC NG SCH (08:24)
[2018-12-12] MEDS: SULFAMETHOXAZOLE/TRIMETHOPRIM 800/160MG TABLET PO SCH ×2 (08:24→20:52)
[2018-12-12] MEDS: ASCORBIC ACID 500 MG TABLET PO SCH (08:24)
[2018-12-12] MEDS: ZINC SULFATE 220 MG ( 50 ) CAPSULE PO SCH (08:24)
[2018-12-12] MEDS: MIDODRINE HCL 5MG TABLET PO SCH ×3 (08:24→17:25)
[2018-12-12 08:30] LABS: PHOSPHORUS 2.8 mg/dL (2.5-4.9)
[2018-12-13] VITALS (12 sets, daily range): BP systolic 87–114; BP diastolic 44–61
[2018-12-13] MEDS: IPRATROPIUM/ALBUTEROL 0.5-3(2.5)MG/3ML NEB HHN SCH ×6 (00:30→20:18)
[2018-12-13] MEDS: PANTOPRAZOLE 40MG DR TABLET PO SCH (05:57)
[2018-12-13 05:59] LABS: BASOPHILS % 0.8 % (0.0-2.0); EOSINOPHILS % 0.3 % (0.0-5.0); HEMATOCRIT. 27.7 % (42.0-52.0); HEMOGLOBIN. 8.9 g/dL (14.0-18.0); LYMPHOCYTES % 34.2 % (20.0-50.0); MEAN CORPUSCULAR HEMOGLOBIN 32.2 pg (28.0-32.0); MEAN PLATELET VOLUME 10.7 fl (7.4-10.4); MONOCYTES % 5.7 % (2.0-8.0); PLATELET 82 x1000/uL (130-400); RED BLOOD CELL COUNT 2.75 mill/uL (4.7-6.1); RED CELL DISTRIBUTION WIDTH 15.5 % (11.6-14.6)
[2018-12-13 06:06] LABS: INR 1.3; PROTHROMBIN TIME 13.4 sec (9.1-11.1)
[2018-12-13 06:23] LABS: CHLORIDE 118 mEq/L (98-107)
[2018-12-13 06:33] LABS: PHOSPHORUS 3.4 mg/dL (2.5-4.9)
[2018-12-13] MEDS: ZINC SULFATE 220 MG ( 50 ) CAPSULE PO SCH (08:54)
[2018-12-13] MEDS: DOCUSATE SODIUM SUGAR FREE 100MG/10ML UDC NG SCH (08:54)
[2018-12-13] MEDS: ASCORBIC ACID 500 MG TABLET PO SCH (08:54)
[2018-12-13] MEDS: SULFAMETHOXAZOLE/TRIMETHOPRIM 800/160MG TABLET PO SCH ×2 (08:55→22:51)
[2018-12-13] MEDS: MIDODRINE HCL 5MG TABLET PO SCH ×3 (09:00→17:00)
[2018-12-14] VITALS (12 sets, daily range): BP systolic 87–122; BP diastolic 45–69
[2018-12-14] MEDS: IPRATROPIUM/ALBUTEROL 0.5-3(2.5)MG/3ML NEB HHN SCH ×6 (00:42→20:47)
[2018-12-14 08:18] LABS: BASOPHILS % 0.5 % (0.0-2.0); EOSINOPHILS % 0.3 % (0.0-5.0); HEMATOCRIT. 31.3 % (42.0-52.0); HEMOGLOBIN. 9.8 g/dL (14.0-18.0); LYMPHOCYTES % 23.4 % (20.0-50.0); MEAN CORPUSCULAR HEMOGLOBIN 32.3 pg (28.0-32.0); MEAN CORPUSCULAR VOLUME 102.7 fL (80.0-94.0); MEAN PLATELET VOLUME 10.2 fl (7.4-10.4); NEUTROPHILS % 69.8 % (40.0-76.0); PLATELET 86 x1000/uL (130-400); RED BLOOD CELL COUNT 3.05 mill/uL (4.7-6.1); RED CELL DISTRIBUTION WIDTH 15.5 % (11.6-14.6)
[2018-12-14] MEDS: MIDODRINE HCL 5MG TABLET PO SCH ×3 (08:35→18:28)
[2018-12-14] MEDS: DOCUSATE SODIUM SUGAR FREE 100MG/10ML UDC NG SCH (08:36)
[2018-12-14] MEDS: PANTOPRAZOLE 40MG DR TABLET PO SCH (08:36)
[2018-12-14] MEDS: ASCORBIC ACID 500 MG TABLET PO SCH (08:36)
[2018-12-14] MEDS: SULFAMETHOXAZOLE/TRIMETHOPRIM 800/160MG TABLET PO SCH ×2 (08:36→20:58)
[2018-12-14] MEDS: ZINC SULFATE 220 MG ( 50 ) CAPSULE PO SCH (08:36)
[2018-12-14 08:43] LABS: CHLORIDE 119 mEq/L (98-107)
[2018-12-14] MEDS: DEXTROSE 5% WATER 1,000 ML IV SCH ×2 (09:00→20:58)
[2018-12-15] VITALS (70 sets, daily range): BP systolic 46–142; BP diastolic 25–84
[2018-12-15] MEDS: IPRATROPIUM/ALBUTEROL 0.5-3(2.5)MG/3ML NEB HHN SCH ×6 (00:55→20:00)
[2018-12-15 06:33] LABS: BASOPHILS % 0.2 % (0.0-2.0); HEMATOCRIT. 26.7 % (42.0-52.0); HEMOGLOBIN. 8.6 g/dL (14.0-18.0); LYMPHOCYTES % 12.8 % (20.0-50.0); MEAN CORPUSCULAR HEMOGLOBIN 33.4 pg (28.0-32.0); MEAN PLATELET VOLUME 9.8 fl (7.4-10.4); MONOCYTES % 5.7 % (2.0-8.0); NEUTROPHILS % 81.3 % (40.0-76.0); PLATELET 75 x1000/uL (130-400); RED BLOOD CELL COUNT 2.59 mill/uL (4.7-6.1); RED CELL DISTRIBUTION WIDTH 16.3 % (11.6-14.6)
[2018-12-15 06:40] LABS: INR 1.3; PARTIAL THROMBOPLASTIN TIME 32.1 sec (23.4-31.0); PROTHROMBIN TIME 13.4 sec (9.1-11.1)
[2018-12-15 06:46] LABS: CHLORIDE 118 mEq/L (98-107)
[2018-12-15] MEDS: PANTOPRAZOLE 40MG DR TABLET PO SCH (07:24)
[2018-12-15] MEDS ORDERED: CEFAZOLIN 1000MG PREMIX 50 ML IV SCH (08:00)
[2018-12-15] MEDS ORDERED: NOREPINEPHRINE 4 MG in DEXT 5% WATER 246 ML IV PRN (09:15)
[2018-12-15] MEDS ORDERED: FUROSEMIDE 40MG/4ML VIAL IVP NR (09:15)
[2018-12-15 09:47] LABS: BG BASE EXCESS 0.4 mmol/L (-2.0-2.0); BG CARBOXYHEMOGLOBIN 0.7 % (0.5-1.5); BG DEOXYHEMOGLOBIN 0.4 % (0.0-5.0); BG FRACTION INSPIRED OXYGEN 100; BG HCO3 ACT 24.5 mmol/L (22.0-26.0); BG METHEMOGLOBIN 0.1 % (0.0-1.5); BG OXYGEN SATURATION 99.6 % (92.0-98.5); BG OXYHEMOGLOBIN 98.8 % (94.0-97.0); BG PCO2 37.2 mmHg (35.0-45.0); BG PH 7.436 (7.350-7.450); BG PO2 268.2 mmHg (75.0-100.0); BG SAMPLE SITE RIGHT RADIAL; BG TOTAL HEMOGLOBIN 9.2 g/dL (12.0-18.0); BG VENT MODE MASK - NRB
[2018-12-15] MEDS: ZINC SULFATE 220 MG ( 50 ) CAPSULE PO SCH (09:50)
[2018-12-15] MEDS: ASCORBIC ACID 500 MG TABLET PO SCH (09:50)
[2018-12-15] MEDS: MIDODRINE HCL 5MG TABLET PO SCH ×3 (09:50→17:29)
[2018-12-15] MEDS: DOCUSATE SODIUM SUGAR FREE 100MG/10ML UDC NG SCH (09:51)
[2018-12-15] MEDS ORDERED: SODIUM POLYSTYRENE SULFONATE 15 G/60 ML BOT PO SCH (10:00)
[2018-12-15] MEDS ORDERED: VANCOMYCIN 1250MG in DEXTROSE 5% WATER 250ML IV NR (10:45)
[2018-12-15] MEDS: PIPERACILLIN/TAZOBACTAM 2.25 G in DEXTROSE 5% WATER 50 ML IV SCH ×3 (11:42→23:31)
[2018-12-15 12:33] LABS: BG BASE EXCESS -1.8 mmol/L (-2.0-2.0); BG CARBOXYHEMOGLOBIN 0.4 % (0.5-1.5); BG DEOXYHEMOGLOBIN 5.3 % (0.0-5.0); BG FRACTION INSPIRED OXYGEN 100; BG METHEMOGLOBIN 0.4 % (0.0-1.5); BG OXYGEN SATURATION 94.7 % (92.0-98.5); BG OXYHEMOGLOBIN 93.9 % (94.0-97.0); BG PCO2 52.5 mmHg (35.0-45.0); BG PH 7.295 (7.350-7.450); BG PO2 86.7 mmHg (75.0-100.0); BG SAMPLE SITE RIGHT RADIAL; BG TIDAL VOLUME(mL) 500 mL; BG VENT MODE VENT - A/C; BG VENT RATE 14 set
[2018-12-15] MEDS ORDERED: PHENYLEPHRINE 10 MG in DEXT 5% WATER 249 ML IV PRN (13:30)
[2018-12-15 13:47] LABS: BASOPHILS % 0.1 % (0.0-2.0); HEMATOCRIT. 30.3 % (42.0-52.0); HEMOGLOBIN. 9.3 g/dL (14.0-18.0); LYMPHOCYTES % 10.9 % (20.0-50.0); MEAN CORPUSCULAR HEMOGLOBIN 31.8 pg (28.0-32.0); MEAN CORPUSCULAR VOLUME 103.6 fL (80.0-94.0); MONOCYTES % 4.2 % (2.0-8.0); NEUTROPHILS % 84.8 % (40.0-76.0); PLATELET 82 x1000/uL (130-400); RED BLOOD CELL COUNT 2.93 mill/uL (4.7-6.1); RED CELL DISTRIBUTION WIDTH 16.2 % (11.6-14.6)
[2018-12-15] MEDS ORDERED: ETOMIDATE 2MG/ML 10ML VIAL IV ONE (14:28)
[2018-12-15] MEDS ORDERED: VECURONIUM BROMIDE 10 MG/VIAL IV ONE (14:28)
[2018-12-15] MEDS ORDERED: NOREPINEPHRINE 8 MG in DEXT 5% WATER 492 ML IV PRN (14:45)
[2018-12-15] MEDS ORDERED: PHENYLEPHRINE 20 MG in DEXT 5% WATER 498 ML IV PRN (14:45)
[2018-12-15] MEDS: VASOPRESSIN 10 UNIT in SODIUM CHLORIDE 0.9% 99.5 ML IV PRN ×2 (15:01→22:11)
[2018-12-15] MEDS: ACETYLCYSTEINE 100MG/ML 10% VIAL 4ML INH SCH ×2 (15:30→23:42)
[2018-12-15] MEDS ORDERED: NOREPINEPHRINE 32 MG in DEXT 5% WATER 468 ML IV PRN (16:00)
[2018-12-15] MEDS: PHENYLEPHRINE 80 MG in DEXT 5% WATER 492 ML IV PRN (16:32)
[2018-12-15] MEDS: PROPOFOL 10MG/ML 100ML 100 ML IV PRN (19:58)
[2018-12-15] MEDS ORDERED: SODIUM CHLORIDE 0.9% 500 ML IV NR (20:45)
[2018-12-15] MEDS: DOPAMINE 800MG PREMIX (DOUBLE) 250 ML IV PRN (22:12)
[2018-12-15] MEDS: DEXTROSE 5% WATER 1,000 ML IV SCH (23:02)
[2018-12-15] MEDS: IPRATROPIUM BROMIDE (0.02%) 0.5MG/2.5ML NEB HHN SCH (23:42)
[2018-12-16] VITALS (28 sets, daily range): BP systolic 36–121; BP diastolic 22–72
[2018-12-16] MEDS: VASOPRESSIN 10 UNIT in SODIUM CHLORIDE 0.9% 99.5 ML IV PRN ×2 (02:24→06:40)
[2018-12-16] MEDS: PROPOFOL 10MG/ML 100ML 100 ML IV PRN (03:38)
[2018-12-16] MEDS: IPRATROPIUM BROMIDE (0.02%) 0.5MG/2.5ML NEB HHN SCH (03:47)
[2018-12-16] MEDS: DOPAMINE 800MG PREMIX (DOUBLE) 250 ML IV PRN (04:43)
[2018-12-16 05:40] LABS: HEMATOCRIT. 30.1 % (42.0-52.0); MEAN CORPUSCULAR VOLUME 110.2 fL (80.0-94.0); MEAN PLATELET VOLUME 11.3 fl (7.4-10.4); PLATELET 56 x1000/uL (130-400); RED BLOOD CELL COUNT 2.73 mill/uL (4.7-6.1); RED CELL DISTRIBUTION WIDTH 17.1 % (11.6-14.6)
[2018-12-16] MEDS: PIPERACILLIN/TAZOBACTAM 2.25 G in DEXTROSE 5% WATER 50 ML IV SCH (05:40)
[2018-12-16] MEDS: PANTOPRAZOLE 40MG DR TABLET PO SCH (05:40)
[2018-12-16] MEDS: PHENYLEPHRINE 80 MG in DEXT 5% WATER 492 ML IV PRN (07:33)
[2018-12-16 07:40] LABS: PLATELET ESTIMATE DECREASED
[2018-12-16 08:25] LABS: BG BASE EXCESS -18.5 mmol/L (-2.0-2.0); BG CARBOXYHEMOGLOBIN 0.3 % (0.5-1.5); BG DEOXYHEMOGLOBIN 34.2 % (0.0-5.0); BG FRACTION INSPIRED OXYGEN 80; BG HCO3 ACT 12.4 mmol/L (22.0-26.0); BG METHEMOGLOBIN 0.1 % (0.0-1.5); BG OXYGEN SATURATION 65.7 % (92.0-98.5); BG OXYHEMOGLOBIN 65.4 % (94.0-97.0); BG PCO2 54.8 mmHg (35.0-45.0); BG PH 6.974 (7.350-7.450); BG PO2 49.4 mmHg (75.0-100.0); BG SAMPLE SITE RIGHT BRACHIAL; BG TIDAL VOLUME(mL) 500 mL; BG VENT MODE VENT - A/C; BG VENT RATE 16 set
[2018-12-16] MEDS ORDERED: VANCOMYCIN 1250MG in DEXTROSE 5% WATER 250ML IV SCH (10:00)
[2018-12-16] MEDS ORDERED: PIPERACILLIN/TAZ 2.25G PREMIX 50 ML IV SCH (18:00)
== END 2018-12-16 08:13 | disposition expired | DRG 710 ==
LOC: ER 15:58 → 5EST 16:39 → EDBEDREQ 16:42 → EDBEDREQTM 16:42 → ENRESERV 16:50 → MICUSO 12-15 10:25
PROVIDERS: ADMIT Internal Medicine Nephrology; ATTEND Internal Medicine Nephrology
PROC: 5A09357 Assistance with Respiratory Ventilation, Less than 24 Consecutive Hours, Continuous Positive Airway Pressure (ICD-10-PCS; 2018-12-07)
PROC: 5A09357 Assistance with Respiratory Ventilation, Less than 24 Consecutive Hours, Continuous Positive Airway Pressure (ICD-10-PCS; 2018-12-08)
PROC: 0KBN0ZZ Excision of Right Hip Muscle, Open Approach (ICD-10-PCS; 2018-12-10)
PROC: 0KBP0ZZ Excision of Left Hip Muscle, Open Approach (ICD-10-PCS; 2018-12-10)
PROC: 02HV33Z Insertion of Infusion Device into Superior Vena Cava, Percutaneous Approach (ICD-10-PCS; 2018-12-10)
PROC: B548ZZA Ultrasonography of Superior Vena Cava, Guidance (ICD-10-PCS; 2018-12-10)
PROC: 5A09357 Assistance with Respiratory Ventilation, Less than 24 Consecutive Hours, Continuous Positive Airway Pressure (ICD-10-PCS; 2018-12-11)
PROC: 5A1935Z Respiratory Ventilation, Less than 24 Consecutive Hours (ICD-10-PCS; principal; 2018-12-15)
PROC: 0BH17EZ Insertion of Endotracheal Airway into Trachea, Via Natural or Artificial Opening (ICD-10-PCS; 2018-12-16)
DX: A41.9 Sepsis, unspecified organism (principal); J96.01 Acute respiratory failure with hypoxia; I26.99 Other pulmonary embolism without acute cor pulmonale; J69.0 Pneumonitis due to inhalation of food and vomit; G92 Toxic encephalopathy; L89.214 Pressure ulcer of right hip, stage 4; L89.94 Pressure ulcer of unspecified site, stage 4; I82.402 Acute embolism and thrombosis of unspecified deep veins of left lower extremity; L89.224 Pressure ulcer of left hip, stage 4; E87.0 Hyperosmolality and hypernatremia; L89.893 Pressure ulcer of other site, stage 3; J44.1 Chronic obstructive pulmonary disease with (acute) exacerbation; D68.9 Coagulation defect, unspecified; D69.6 Thrombocytopenia, unspecified; G20 Parkinson's disease; I42.9 Cardiomyopathy, unspecified; D53.9 Nutritional anemia, unspecified; E86.9 Volume depletion, unspecified; N39.0 Urinary tract infection, site not specified; B96.20 Unspecified Escherichia coli [E. coli] as the cause of diseases classified elsewhere; B96.89 Other specified bacterial agents as the cause of diseases classified elsewhere; E78.00 Pure hypercholesterolemia, unspecified; E78.5 Hyperlipidemia, unspecified; E87.6 Hypokalemia; I10 Essential (primary) hypertension; I25.10 Atherosclerotic heart disease of native coronary artery without angina pectoris; N28.9 Disorder of kidney and ureter, unspecified; Z51.5 Encounter for palliative care; Z66 Do not resuscitate; Z86.718 Personal history of other venous thrombosis and embolism; Z86.73 Personal history of transient ischemic attack (TIA), and cerebral infarction without residual deficits
CPT/HCPCS: 31500; 36415; 36569; 36600; 71045; 76937; 78580; 80048; 80061; 82140; 82270; 82375; 82550; 82553; 82607; 82746; 82805; 83036; 83540; 83550; 83605; 83735; 83880; 84100; 84134; 84145; 84439; 84443; 84481; 84484; 87070; 87077; 87186; 87804; 92610; 93005; 93306; 93970; 94002; 94640; 94644; 94660; 96374; 96375; 99285; C1725; J0295; J0690; J1200; J1265; J1650; J1940; J1956; J2370; J2405; J2543; J2704; J2930; J3370; J3475; J3490; J7050; J7060; J7070; J7608; J7611; J7620; J7626; A4315